=== PATIENT | male | born 1945 ===

== ENCOUNTER 2018-11-05 08:29 | Day surgery (SDC) | payer MEDICARE ==
[2018-11-05] MEDS ORDERED: Lactated Ringer's 1,000 ML IV ONE (09:40)
[2018-11-05 09:46] VITALS: BMI 26.7
[2018-11-05 10:19] VITALS: RESP 20; TEMP 98.2
[2018-11-05] MEDS ORDERED: Propofol 10 mg/ml Inj (20 ML) ONE ×2 (10:40)
[2018-11-05] MEDS ORDERED: Lidocaine Hydrochloride 5 ML INJ ONE (10:41)
[2018-11-05 14:28] VITALS: O2SAT 98
[2018-11-05 14:30] VITALS: BP 124/73
[2018-11-05 14:32] VITALS: PULSE 61
== END 2018-11-05 14:33 | disposition home or self-care (01) ==
LOC: C.ENDO 08:29
PROVIDERS: ATTEND Internal Medicine Gastroenterology
DX: Z12.11 Encounter for screening for malignant neoplasm of colon (principal); D12.3 Benign neoplasm of transverse colon; D12.4 Benign neoplasm of descending colon; K64.1 Second degree hemorrhoids; Z86.010 Personal history of colon polyps; K29.50 Unspecified chronic gastritis without bleeding; K26.9 Duodenal ulcer, unspecified as acute or chronic, without hemorrhage or perforation; I10 Essential (primary) hypertension; E11.9 Type 2 diabetes mellitus without complications; E78.5 Hyperlipidemia, unspecified; E55.9 Vitamin D deficiency, unspecified; M19.90 Unspecified osteoarthritis, unspecified site; Z86.73 Personal history of transient ischemic attack (TIA), and cerebral infarction without residual deficits; Z98.890 Other specified postprocedural states; Z79.84 Long term (current) use of oral hypoglycemic drugs; Z79.899 Other long term (current) drug therapy
CPT/HCPCS: 43239; 45380; 82948; 88305; 88313; 88342; J2704; J7120